=== PATIENT | male | born 1975 | race Caucasian/White ===

== ENCOUNTER 2019-09-23 06:29 | Observation (INO) | payer OTHER, MEDICAID, SELFPAY ==
[2019-09-23] VITALS (12 sets, daily range): BP systolic 132–176; BP diastolic 58–102; PULSE 57–77; RESP 16–17; TEMP 36.6–36.7; O2SAT 94–98; BMI 25.0
--- NOTE | 2019-09-23 06:39 | ED_ITS ---
HPI - Skin/Abscess/Foreign Bdy <Brianne Woods MD - Last Filed: 09/24/19 05:16> General Chief complaint: Skin/Abscess/Foreign Body Stated complaint: Lump on throat Time Seen by Provider: 09/23/19 06:32 History of Present Illness HPI narrative: 44-year-old gentleman with no significant medical history presents with an expanding abscess in the submandibular space that has been present for at least 3 days. Looks like it begin is the channing follicular abscess when he woke up this morning he noted that it had grown significantly was pushing backward extending down his neck to the sternal notch and large enough that he was concerned that it was difficult to swallow and he felt like he was having more trouble breathing. He denies fevers or chills. They did try poking out it to try to get it to drain with little success. There is a minor amount of drainage that is more serosanguineous than anything else. Related Data Home Medications Medication Instructions Recorded Confirmed No Known Home Medications 09/23/19 09/23/19 Allergies Allergy/AdvReac Type Severity Reaction Status Date / Time No Known Drug Allergies Allergy Verified 09/23/19 10:52 Review of Systems <Brianne Woods MD - Last Filed: 09/24/19 05:16> Review of Systems Narrative: Pertinent positive and negative findings as per HPI Remainder of review of systems is otherwise unremarkable for Constitutional: Fevers, chills, weakness ENT: No sore throat, ear pain CV: Chest pain, palpitations, dyspnea on exertion Respiratory: Cough, wheeze, dyspnea GI: Nausea, vomiting, diarrhea, change in bowel habits, black or bloody stools : Dysuria, hematuria, flank pain MS: Muscle weakness, numbness, joint swelling or warmth Neuro: Syncope, dizziness, tingling Patient History <Brianne Woods MD - Last Filed: 09/24/19 05:16> Medical History (Updated 09/23/19 @ 14:17 by Daina Sky MD) Inguinal hernia (Acute) Lower leg injury (Acute) Social History Smoking Status: Current every day smoker Exam <Brianne Woods MD - Last Filed: 09/24/19 05:16> Narrative Exam Narrative: General: Healthy appearing, in no acute distress. Able to give a complete and coherent history. Well-nourished well-developed HEENT: Moist mucous membranes, 6 x 8 cm abscess in the submandibular area without surrounding erythema that appears to be extending down the anterior portion of his neck toward the sternal notch. He complains of pressure over his Gustavo's apple and a sensation that it is getting harder to breathe. Neck: No cervical adenopathy, supple Respiratory: Lungs are clear to auscultation, no wheezing no rales no rhonchi. Full and symmetrical air movement and able to comfortably speak in full sentences Cardiac: Regular rate and rhythm no murmurs no bruits Skin: Warm and dry, no rashes Neurologic: Grossly neurologically intact with no obvious asymmetries or abnormalities Extremities: No trauma, well perfused Psych: Cooperative, appropriate insight and affect Initial Vital Signs Initial Vital Signs: Vital Signs Temperature 97.8 F 09/23/19 06:46 Pulse Rate 77 09/23/19 06:46 Respiratory Rate 16 09/23/19 06:46 Blood Pressure 167/102 H 09/23/19 06:46 Pulse Oximetry 97 09/23/19 06:46 <Jorge L Sheridan MD - Last Filed: 09/23/19 08:47> Initial Vital Signs Initial Vital Signs: Vital Signs Temperature 97.8 F 09/23/19 06:46 Pulse Rate 77 09/23/19 06:46 Respiratory Rate 16 09/23/19 06:46 Blood Pressure 167/102 H 09/23/19 06:46 Pulse Oximetry 97 09/23/19 06:46 Course <Brianne Woods MD - Last Filed: 09/24/19 05:16> Orders Ordered: Acetaminophen (Tylenol) 650 mg PO Q6HR PRN PRN Reason: Fever/Mild Pain (1-3) Hydrocodone Bitart/Acetaminophen ([place]ing 5/325) 1 tab PO Q4HR PRN PRN Reason: Pain, Moderate (4-6) Last Admin: 09/23/19 22:37 Dose: 1 tab Documented by: Admin: 09/23/19 18:02 Dose: 1 tab Documented by: Admin: 09/23/19 14:19 Dose: 1 tab Documented by: WAQAS Al Hydrox/Mg Hydrox/Simethicone (Maalox Plus) 30 ml PO Q6HR PRN PRN Reason: Dyspepsia Calcium Carbonate (Tums) 1,000 mg PO Q4HR PRN PRN Reason: Dyspepsia Enoxaparin Sodium (Lovenox) 40 mg SUBCUT DAILY [facility] Hydromorphone HCl (Dilaudid) 1 mg IV Q6HR PRN PRN Reason: Pain, Severe (7-10) Dextrose/Sodium Chloride (Dextrose 5%-0.45% Ns) 1,000 mls @ 100 mls/hr IV CONT [facility] Last Admin: 09/24/19 03:34 Dose: 100 mls/hr Documented by: Infusion: 09/24/19 03:32 Dose: 0 mls/hr Documented by: Admin: 09/23/19 14:21 Dose: 100 mls/hr Documented by: WAQAS Ceftriaxone Sodium/Dextrose (Rocephin) 2 gm in 50 mls @ 100 mls/hr IV Q24H [facility] Vancomycin HCl (Vancomycin) 1,000 mg in 200 mls @ 200 mls/hr IV Q8H [facility] Last Infusion: 09/24/19 00:00 Dose: 0 mls/hr Documented by: Admin: 09/23/19 21:35 Dose: 200 mls/hr Documented by: Infusion: 09/23/19 19:09 Dose: 0 mls/hr Documented by: Admin: 09/23/19 14:28 Dose: 200 mls/hr Documented by: WAQAS Ibuprofen (Advil) 600 mg PO Q6HR PRN PRN Reason: Fever/Mild Pain (1-3) Last Admin: 09/23/19 21:35 Dose: 600 mg Documented by: TAYLOR Naloxone HCl (Narcan) 0.2 mg IV Q2MIN PRN PRN Reason: Opiate Reversal Nicotine (Nicoderm) 14 mg TOP DAILY [facility] Last Admin: 09/23/19 15:33 Dose: 14 mg Documented by: TAYLOR Ondansetron HCl (Zofran) 4 mg IV Q8HR PRN PRN Reason: Nausea And Vomiting Vancomycin HCl (Vancomycin Trough) 1 request MISC NOW ONE Stop: 09/24/19 14:01 Discontinued Medications Ceftriaxone Sodium/Dextrose (Rocephin) 2 gm in 50 mls @ 100 mls/hr IV NOW ONE Stop: 09/23/19 07:08 Last Infusion: 09/23/19 08:46 Dose: 0 mls/hr Documented by: Admin: 09/23/19 07:56 Dose: 100 mls/hr Documented by: MARY Vancomycin HCl (Vancomycin) 1,000 mg in 200 mls @ 200 mls/hr IV Q24H [facility] Last Admin: 09/23/19 15:20 Dose: Not Given Documented by: TAYLOR Ketorolac Tromethamine (Toradol) 30 mg IV NOW ONE Stop: 09/23/19 08:30 Last Admin: 09/23/19 08:47 Dose: 30 mg Documented by: CHRISTINE Vital Signs Vital signs: Vital Signs - 8 hr 09/23/19 06:46 09/23/19 07:57 09/23/19 08:00 Temperature 97.8 F Pulse Rate 77 68 67 Respiratory Rate 16 Blood Pressure 167/102 H Pulse Oximetry 97 98 97 09/23/19 08:05 Temperature Pulse Rate Respiratory Rate Blood Pressure 168/95 H Pulse Oximetry <Jorge L Sheridan MD - Last Filed: 09/23/19 08:47> Course Course Narrative: The patient was initially evaluated by Dr. Ortiz. He developed a submandibular lump 3 days ago, he now significant erythema and swelling in that region, with erythema extending to the anterior chest. 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 He describes multiple inflamed hair cells in his face and chin, thinking that may be the source. There was no injury associated with the current inflammatory changes. He feels pressure when he swallows, no difficulty breathing. He is having no fever chills. Dr. Ortiz ordered the lab evaluation, as well as Rocephin IV. CT showed cellulitis changes, no clear abscess formation. He has had no associated fever chills. He has no cough or dyspnea. He has no chronic skin disease. He is not diabetic. Exam: Patient is alert and oriented, no apparent distress. No facial changes, no edema or erythema. Oropharynx is normal. There is no edema. Teeth are normal. Segments submandibular edema with erythema. Induration without fluctuance. There is a site with a small amount of purulent serous discharge. No nuchal rigidity. Lungs clear to auscultation Heart regular rate rhythm, no murmur. Skin: Cellulitis to the anterior neck, with erythema extending onto the upper c hest. There is no induration or fluctuance in the upper chest region Assessment: Neck cellulitis. Plan: The patient has received Rocephin. I ordered Toradol for pain. The situation has been discussed with the hospitalist, Dr. Sky. He was admitted for treatment the cellulitis, as well as airway monitoring. Orders Ordered: Acetaminophen (Tylenol) 650 mg PO Q6HR PRN PRN Reason: Fever/Mild Pain (1-3) Hydrocodone Bitart/Acetaminophen ([place]ing 5/325) 1 tab PO Q4HR PRN PRN Reason: Pain, Moderate (4-6) Last Admin: 09/23/19 22:37 Dose: 1 tab Documented by: Admin: 09/23/19 18:02 Dose: 1 tab Documented by: Admin: 09/23/19 14:19 Dose: 1 tab Documented by: WAQAS Al Hydrox/Mg Hydrox/Simethicone (Maalox Plus) 30 ml PO Q6HR PRN PRN Reason: Dyspepsia Calcium Carbonate (Tums) 1,000 mg PO Q4HR PRN PRN Reason: Dyspepsia Enoxaparin Sodium (Lovenox) 40 mg SUBCUT DAILY [facility] Hydromorphone HCl (Dilaudid) 1 mg IV Q6HR PRN PRN Reason: Pain, Severe (7-10) Dextrose/Sodium Chloride (Dextrose 5%-0.45% Ns) 1,000 mls @ 100 mls/hr IV CONT [facility] Last Admin: 09/24/19 03:34 Dose: 100 mls/hr Documented by: Infusion: 09/24/19 03:32 Dose: 0 mls/hr Documented by: Admin: 09/23/19 14:21 Dose: 100 mls/hr Documented by: WAQAS Ceftriaxone Sodium/Dextrose (Rocephin) 2 gm in 50 mls @ 100 mls/hr IV Q24H [facility] Vancomycin HCl (Vancomycin) 1,000 mg in 200 mls @ 200 mls/hr IV Q8H [facility] Last Infusion: 09/24/19 00:00 Dose: 0 mls/hr Documented by: Admin: 09/23/19 21:35 Dose: 200 mls/hr Documented by: Infusion: 09/23/19 19:09 Dose: 0 mls/hr Documented by: Admin: 09/23/19 14:28 Dose: 200 mls/hr Documented by: WAQAS Ibuprofen (Advil) 600 mg PO Q6HR PRN PRN Reason: Fever/Mild Pain (1-3) Last Admin: 09/23/19 21:35 Dose: 600 mg Documented by: TAYLOR Naloxone HCl (Narcan) 0.2 mg IV Q2MIN PRN PRN Reason: Opiate Reversal Nicotine (Nicoderm) 14 mg TOP DAILY [facility] Last Admin: 09/23/19 15:33 Dose: 14 mg Documented by: TAYLOR Ondansetron HCl (Zofran) 4 mg IV Q8HR PRN PRN Reason: Nausea And Vomiting Vancomycin HCl (Vancomycin Trough) 1 request MISC NOW ONE Stop: 09/24/19 14:01 Discontinued Medications Ceftriaxone Sodium/Dextrose (Rocephin) 2 gm in 50 mls @ 100 mls/hr IV NOW ONE Stop: 09/23/19 07:08 Last Infusion: 09/23/19 08:46 Dose: 0 mls/hr Documented by: Admin: 09/23/19 07:56 Dose: 100 mls/hr Documented by: MARY Vancomycin HCl (Vancomycin) 1,000 mg in 200 mls @ 200 mls/hr IV Q24H [facility] Last Admin: 09/23/19 15:20 Dose: Not Given Documented by: TAYLOR Ketorolac Tromethamine (Toradol) 30 mg IV NOW ONE Stop: 09/23/19 08:30 Last Admin: 09/23/19 08:47 Dose: 30 mg Documented by: CHRISTINE Vital Signs Vital signs: Vital Signs - 8 hr 09/23/19 06:46 09/23/19 07:57 09/23/19 08:00 Temperature 97.8 F Pulse Rate 77 68 67 Respiratory Rate 16 Blood Pressure 167/102 H Pulse Oximetry 97 98 97 09/23/19 08:05 Temperature Pulse Rate Respiratory Rate Blood Pressure 168/95 H Pulse Oximetry MDM - Skin/Abscess/Foreign Bdy <Brianne Woods MD - Last Filed: 09/24/19 05:16> Lab Data Result diagrams: 09/23/19 06:43 09/23/19 06:43 Labs: Lab Results 09/23/19 09/23/19 09/23/19 Range/Units 06:43 06:43 06:43 WBC 13.7 H (4.5-11.0) X10^3/uL RBC 5.18 (4.5-5.9) X10^6/uL Hgb 16.3 (13.5-17.5) g/dL Hct 47.2 (41-53) % MCV 91.1 (80-100) fL MCH 31.5 (26-34) PG MCHC 34.5 (30-36) % RDW 13.2 (11.6-14.8) % Plt Count 269 (150-400) X10^3/uL Neut % (Auto) 69.4 (50-75) % Lymph % (Auto) 17.9 L (25-40) % [place] % (Auto) 9.3 (3-14) % Eos % (Auto) 2.8 (2-4) % Baso % (Auto) 0.6 (0-2) % Neut # (Auto) 9500 H (6870-0403) /uL Lymph # (Auto) 2400 (9787-0166) /uL [place] # (Auto) 1300 H (0-900) /uL Eos # (Auto) 400 (0-450) /uL Baso # (Auto) 100 (0-100) /uL Sodium 137 (137-145) mmol/L Potassium 3.6 (3.4-5.1) mmol/L Chloride 101 (98-107) mmol/L Carbon Dioxide 27 (22-32) mmol/L BUN 12 (9-20) mg/dL Creatinine 0.87 (0.66-1.25) mg/dL Estimated GFR > 60.0 (>60) mL/min BUN/Creatinine Ratio 13.8 (6-22) Glucose 120 H (70-100) mg/dL Lactate 1.7 (0.7-2.1) mmol/L Calcium 9.4 (8.4-10.2) mg/dL Total Bilirubin 0.5 (0.2-1.3) mg/dL AST 23 (17-59) IU/L ALT 24 (<50) IU/L Alkaline Phosphatase 88 (38-126) U/L Total Protein 7.6 (6.3-8.2) g/dL Albumin 4.5 (3.5-5.0) g/dL Globulin 3.1 (1.7-4.1) g/dL Albumin/Globulin Ratio 1.5 (1.0-2.8) <Jorge L Sheridan MD - Last Filed: 09/23/19 08:47> Lab Data Labs: Lab Results 09/23/19 09/23/19 09/23/19 Range/Units 06:43 06:43 06:43 WBC 13.7 H (4.5-11.0) X10^3/uL RBC 5.18 (4.5-5.9) X10^6/uL Hgb 16.3 (13.5-17.5) g/dL Hct 47.2 (41-53) % MCV 91.1 (80-100) fL MCH 31.5 (26-34) PG MCHC 34.5 (30-36) % RDW 13.2 (11.6-14.8) % Plt Count 269 (150-400) X10^3/uL Neut % (Auto) 69.4 (50-75) % Lymph % (Auto) 17.9 L (25-40) % [place] % (Auto) 9.3 (3-14) % Eos % (Auto) 2.8 (2-4) % Baso % (Auto) 0.6 (0-2) % Neut # (Auto) 9500 H (1625-5824) /uL Lymph # (Auto) 2400 (3991-8460) /uL [place] # (Auto) 1300 H (0-900) /uL Eos # (Auto) 400 (0-450) /uL Baso # (Auto) 100 (0-100) /uL Sodium 137 (137-145) mmol/L Potassium 3.6 (3.4-5.1) mmol/L Chloride 101 (98-107) mmol/L Carbon Dioxide 27 (22-32) mmol/L BUN 12 (9-20) mg/dL Creatinine 0.87 (0.66-1.25) mg/dL Estimated GFR > 60.0 (>60) mL/min BUN/Creatinine Ratio 13.8 (6-22) Glucose 120 H (70-100) mg/dL Lactate 1.7 (0.7-2.1) mmol/L Calcium 9.4 (8.4-10.2) mg/dL Total Bilirubin 0.5 (0.2-1.3) mg/dL AST 23 (17-59) IU/L ALT 24 (<50) IU/L Alkaline Phosphatase 88 (38-126) U/L Total Protein 7.6 (6.3-8.2) g/dL Albumin 4.5 (3.5-5.0) g/dL Globulin 3.1 (1.7-4.1) g/dL Albumin/Globulin Ratio 1.5 (1.0-2.8) Imaging Data Soft tissue neck CT:: Radiologist's Impression: Submandibular cellulitis, no clear abscess formation. Airway is intact. <Jorge L Sheridan MD - Last Filed: 09/23/19 08:47> Critical Care Time Critical Care Time: Yes Total Critical Care Time: 45 Attestation: Critical care time included initial assessment patient, evaluation of lab in radiology information, initiation of care in the ER, informed the patient of the clinical findings and ventral consultation with the admitting hospitalist. Discharge Plan Departure Patient Disposition: Admitted as Observation Clinical Impression: Cellulitis of neck Discharge Date/Time: 09/23/19 11:08 Admit Date/Time: 09/23/19 09:17 Admit Provider: Daina Sky ED Sign-out <Brianne Woods MD - Last Filed: 09/24/19 05:16> Cosign ED Attending Cosisauraature Attestation: I was immediately available in the department for consultation throughout this patient's visit. I agree with documentation as above. Brianne Woods MD
[2019-09-23 06:54] LABS: Add Manual Diff / Slide Review NO; Basophils Absolute Auto 100 /uL (0-100); Basophils Percent Auto 0.6 % (0-2); Eosinophils Absolute Auto 400 /uL (0-450); Eosinophils Percent Auto 2.8 % (2-4); Hematocrit 47.2 % (41-53); Hemoglobin 16.3 g/dL (13.5-17.5); Lymphocytes Absolute Auto 2400 /uL (1100-4500); Lymphocytes Percent Auto 17.9 % (25-40); Mean Corpuscular HGB Conc 34.5 % (30-36); Mean Corpuscular Hemoglobin 31.5 PG (26-34); Mean Corpuscular Volume 91.1 fL (80-100); Monocytes Absolute Auto 1300 /uL (0-900); Monocytes Percent Auto 9.3 % (3-14); Neutrophils Absolute Auto 9500 /uL (1500-7000); Neutrophils Percent Auto 69.4 % (50-75); Platelet Count 269 X10^3/uL (150-400); Red Blood Cell Count 5.18 X10^6/uL (4.5-5.9); Red Cell Distribution Width 13.2 % (11.6-14.8); White Blood Cell Count 13.7 X10^3/uL (4.5-11.0)
[2019-09-23 07:03] LABS: Alanine Aminotransferase 24 IU/L (<50); Albumin 4.5 g/dL (3.5-5.0); Albumin Globulin Ratio 1.5 (1.0-2.8); Alkaline Phosphatase 88 U/L (38-126); Aspartate Aminotransferase 23 IU/L (17-59); BUN Creatinine Ratio 13.8 (6-22); Bilirubin Total 0.5 mg/dL (0.2-1.3); Blood Urea Nitrogen 12 mg/dL (9-20); Calcium 9.4 mg/dL (8.4-10.2); Carbon Dioxide 27 mmol/L (22-32); Chloride 101 mmol/L (98-107); Estimated Glomerular Filt Rate > 60.0 mL/min (>60); Globulin 3.1 g/dL (1.7-4.1); Glucose 120 mg/dL (70-100); HEMOLYSIS < 15 (0-50); Potassium 3.6 mmol/L (3.4-5.1); Sodium 137 mmol/L (137-145); Total Protein 7.6 g/dL (6.3-8.2)
[2019-09-23 07:12] LABS: Lactate (Lactic Acid) 1.7 mmol/L (0.7-2.1)
--- NOTE | 2019-09-23 07:51 | DI.CT.S_ITS ---
PROCEDURE: CT SOFT TISSUE NECK W CON INDICATIONS: submandibular abscess TECHNIQUE: After the administration of intravenous contrast, 3.0 mm axial sections acquired from the sella to the aortic arch. Additional oblique axial 3.0 mm sections acquired through the pharynx. 3 mm thick coronal and sagittal reformats were generated. For radiation dose reduction, the following was used: automated exposure control. COMPARISON: None. FINDINGS: Image quality: Excellent. Lymph nodes: No enlarged lymph nodes seen throughout the neck. Vessels: Visualized vasculature appears patent. Neck spaces: The oropharynx, nasopharynx, and pharynx demonstrate no mucosal lesions. The vocal cords, false vocal cords, pyriform sinuses, epiglottis, vallecula, and tongue base all appear normal. Extramucosal spaces appear unremarkable. Glands: The parotid and submandibular glands appear normal. Thyroid gland appears normal . Miscellaneous: Visualized brain and orbits appear normal. Lung apices appear clear. Superficial soft tissues appear normal. Bones and superficial soft tissues: No suspicious bony lesions. Visualized sinuses and mastoids appear unremarkable except for a small inferior right maxillary sinus mucous retention cyst. Note is made of edema within the soft tissues deep to the cutaneous surface of the submental region of the anterior midline neck. This is slightly greater on the right than the left and associated with focal thickening of the cutaneous margin centered on series 2, image 56. No abscess is seen in this area. There is a single mildly prominent lymph node adjacent to this area, centered on series 2, image 54 and measuring up to 11 x 8 mm in maximal transverse and AP dimensions. . IMPRESSION: The subcutaneous edema and cutaneous thickening discussed above is slightly greater on the right than the left and focally most prominent in the right submental area clinically reported. No abscess associated. The appearance is most likely a manifestation of focal cellulitis without abscess. A small but mildly prominent lymph node deep to this area centered just to the right of midline is likely reactive and measures only 8 x 11 mm. No sign of sinusitis or odontogenic infection, incidental note made of a small mucous retention cyst inferior right maxillary sinus. Dictated by: Srinivas Jenkins M.D. on 09/23/2019 at 8:13 Approved by: Srinivas Jenkins M.D. on 09/23/2019 at 8:19
[2019-09-23] MEDS: CEFTRIAXONE 2 GM/50 ML FROZ.PIGGY IV (07:56)
[2019-09-23] MEDS: KETOROLAC 60 MG/2 ML VIAL 30 MG IV (08:47)
--- NOTE | 2019-09-23 11:41 | PC.NURSE ---
Day shift admit note: Patient admitted to room 213 from ED, VSS and afebrile upon arrival. Oriented to room, environment, and plan care. Able to speak in full sentences, O2 sat 97% on RA. NO difficulty breathing noted. Call light within reach. Ambulating in room independently. Call light within reach.
[2019-09-23 12:24] LABS: COVID19 -Nasal RAPID Negative (Negative)
--- NOTE | 2019-09-23 14:14 | P.HP_ITS ---
History of Present Illness History of Present Illness Date Patient Seen: 09/23/19 Chief complaint: Lump on throat Narrative: The patient is a 44-year-old male with no prior past medical history who presented to the hospital with submandibular abscess/cellulitis. 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 He noted some swelling under the chin few days ago. He then noticed that he had more pain under the chin in but the sternocleidomastoid area. He reported some swelling today. He had difficulty swallowing. He tried to express pus from the area with little improvement. He presented to the emergency room for evaluation. In the emergency room the patient had a CT of the neck which showed soft tissue swelling but no formation of an abscess. He was admitted to the hospital at this time for cellulitis. Patient denies any shortness of breath or chest pain. He has had no fever that he is aware of but did take ibuprofen for generalized malaise last evening. He has had no nausea vomiting or diarrhea. He has had no dysuria hematuria or pyuria. No hematemesis melena or bright red blood per rectum. Patient was seen and evaluated in the emergency room. He had an elevated white count of 13.7. He was started on IV antibiotics and admitted to the hospital for further evaluation. Patient History Medical History (Updated 09/23/19 @ 14:17 by Daina Sky MD) Inguinal hernia (Acute) Lower leg injury (Acute) Family & Social History Social History: Prior Living Arrangements House Safety & Behavioral: Feels Safe in Current Yes Environment Been Physically Hurt or No Threatened By a Person Tobacco & Substance use: Smoking Status Current every day smoker alcohol intake frequency holiday/special occasion Substance Use Type marijuana Meds Home Medications and Allergies Home Medications Medication Instructions Recorded Confirmed Type No Known Home Medications 09/23/19 09/23/19 History Allergies Allergy/AdvReac Type Severity Reaction Status Date / Time No Known Drug Allergies Allergy Verified 09/23/19 10:52 Review of Systems Review of Systems ROS: Yes All systems reviewed with the patient and are negative except as otherwise documented Exam Vital Signs (past 8 hours): - 09/23/19 06:46 09/23/19 07:57 09/23/19 08:00 Temperature 97.8 F Pulse Rate 77 68 67 Respiratory Rate 16 Blood Pressure 167/102 H Pulse Oximetry 97 98 97 09/23/19 08:05 09/23/19 08:52 09/23/19 09:00 Temperature Pulse Rate 65 69 Respiratory Rate Blood Pressure 168/95 H 176/91 H Pulse Oximetry 97 95 09/23/19 09:01 09/23/19 09:20 09/23/19 09:30 Temperature Pulse Rate 63 Respiratory Rate 17 Blood Pressure 152/67 H 133/74 Pulse Oximetry 95 09/23/19 10:00 09/23/19 11:05 Temperature 97.9 F Pulse Rate 60 69 Respiratory Rate 16 Blood Pressure 132/75 142/80 H Pulse Oximetry 94 97 Oxygen Delivery Method Room Air Narrative Exam Narrative: Pleasant gentleman uncomfortable but in no obvious distress HEENT: Normocephalic, submandibular area swollen, there is an open punctate lesion with mild exudate. Attempted to express pus which was unsuccessful. He has erythema, warmth, tenderness to palpation. The area of inflammation under the submandibular area is about 7 x 8 cm in diameter. His oropharynx is clear. His neck is supple, no appreciable supraclavicular or infraclavicular adenopathy Lungs: Clear to auscultation Cardiac exam: Regular rate and rhythm normal S1-S2 with a 2/6 systolic ejection murmur Abdomen: Soft nontender nondistended Extremities: No edema Neuro exam: Nonfocal Objective Labs Result Diagrams: 09/23/19 06:43 09/23/19 06:43 Labs: Laboratory Results - last 24 hr 09/23/19 09/23/19 09/23/19 06:43 06:43 06:43 WBC 13.7 H RBC 5.18 Hgb 16.3 Hct 47.2 MCV 91.1 MCH 31.5 MCHC 34.5 RDW 13.2 Plt Count 269 Neut % (Auto) 69.4 Lymph % (Auto) 17.9 L [place] % (Auto) 9.3 Eos % (Auto) 2.8 Baso % (Auto) 0.6 Neut # (Auto) 9500 H Lymph # (Auto) 2400 [place] # (Auto) 1300 H Eos # (Auto) 400 Baso # (Auto) 100 Sodium 137 Potassium 3.6 Chloride 101 Carbon Dioxide 27 BUN 12 Creatinine 0.87 Estimated GFR > 60.0 BUN/Creatinine Ratio 13.8 Glucose 120 H Lactate 1.7 Calcium 9.4 Total Bilirubin 0.5 AST 23 ALT 24 Alkaline Phosphatase 88 Total Protein 7.6 Albumin 4.5 Globulin 3.1 Albumin/Globulin Ratio 1.5 COVID-19 PCR 09/23/19 10:50 WBC RBC Hgb Hct MCV MCH MCHC RDW Plt Count Neut % (Auto) Lymph % (Auto) [place] % (Auto) Eos % (Auto) Baso % (Auto) Neut # (Auto) Lymph # (Auto) [place] # (Auto) Eos # (Auto) Baso # (Auto) Sodium Potassium Chloride Carbon Dioxide BUN Creatinine Estimated GFR BUN/Creatinine Ratio Glucose Lactate Calcium Total Bilirubin AST ALT Alkaline Phosphatase Total Protein Albumin Globulin Albumin/Globulin Ratio COVID-19 PCR Negative Assessment & Plan Assessment & Plan narrative: Impression 1. 44-year-old male admitted to the hospital with submandibular cellulitis -patient likely may have had an ingrown here which became infected -despite CT findings which showed no evidence of abscess the area does look inflamed and as though it may form an abscess shortly -patient was given ceftriaxone in the emergency department. Will add IV vancomycin and for MRSA coverage. -cultures of the wound were obtained which are still pending -white count elevated at 13.7. Will recheck in the morning -recommend I&D if abscess formation occur - pain control 2. Nicotine dependence -patient was counseled to discontinue smoking -nicotine patch will be started 3. DVT prophylaxis Full code
[2019-09-23] MEDS: HYDROCODONE/ACET 5/325 TABLET 1 TAB PO ×3 (14:19→22:37)
[2019-09-23] MEDS: DEXTROSE 5%-0.45% NS 1,000 ML 100 ML IV (14:21)
[2019-09-23] MEDS: VANCOMYCIN 1,000 MG/200 ML PIGGYBACK 200 MG IV ×2 (14:28→21:35)
--- NOTE | 2019-09-23 14:48 | PC.NURSE ---
Day Shift- Report rec'd from ADEN Dee at 1440 on current pt status. At 1445, RN Coordinator Carlos in to see pt and this RN briefly, able to make needs known by pt. ADEN Gonzalez states pt's under chin, upper neck wound has an elevated area which was previously flat.
[2019-09-23] MEDS: NICOTINE 14 PATCH 14 MG TOP (15:33)
[2019-09-23] MEDS: IBUPROFEN 600 MG TABLET PO (21:35)
[2019-09-24] VITALS (7 sets, daily range): BP systolic 119–138; BP diastolic 69–90; PULSE 57–62; RESP 14–18; TEMP 36.3–36.8; O2SAT 97–98
[2019-09-24] MEDS: DEXTROSE 5%-0.45% NS 1,000 ML 100 ML IV (03:34)
[2019-09-24] MEDS: VANCOMYCIN 1,000 MG/200 ML PIGGYBACK 200 MG IV ×2 (05:55→15:05)
[2019-09-24] MEDS: HYDROCODONE/ACET 5/325 TABLET 1 TAB PO ×3 (05:58→20:47)
[2019-09-24 06:11] LABS: Add Manual Diff / Slide Review NO; Basophils Absolute Auto 0 /uL (0-100); Basophils Percent Auto 0.4 % (0-2); Eosinophils Absolute Auto 500 /uL (0-450); Eosinophils Percent Auto 5.7 % (2-4); Hematocrit 43.5 % (41-53); Hemoglobin 14.8 g/dL (13.5-17.5); Lymphocytes Absolute Auto 1800 /uL (1100-4500); Mean Corpuscular Hemoglobin 31.3 PG (26-34); Monocytes Absolute Auto 800 /uL (0-900); Monocytes Percent Auto 8.6 % (3-14); Neutrophils Absolute Auto 6400 /uL (1500-7000); Neutrophils Percent Auto 66.3 % (50-75); Platelet Count 234 X10^3/uL (150-400); Red Blood Cell Count 4.72 X10^6/uL (4.5-5.9); Red Cell Distribution Width 13.5 % (11.6-14.8); White Blood Cell Count 9.6 X10^3/uL (4.5-11.0)
[2019-09-24 06:19] LABS: BUN Creatinine Ratio 18.4 (6-22); Blood Urea Nitrogen 18 mg/dL (9-20); Calcium 8.5 mg/dL (8.4-10.2); Carbon Dioxide 30 mmol/L (22-32); Chloride 102 mmol/L (98-107); Estimated Glomerular Filt Rate > 60.0 mL/min (>60); Glucose 113 mg/dL (70-100); HEMOLYSIS < 15 (0-50); Sodium 137 mmol/L (137-145)
[2019-09-24] MEDS: ENOXAPARIN 40 MG/0.4 ML SYRINGE SUBCUT (08:42)
[2019-09-24] MEDS: CEFTRIAXONE 2 GM/50 ML FROZ.PIGGY IV (08:42)
[2019-09-24] MEDS: NICOTINE 14 PATCH 14 MG TOP ×2 (08:42→16:21)
--- NOTE | 2019-09-24 09:07 | PM.PN.1 ---
Subjective Subjective Date Patient Seen: 09/24/19 Interval history: Patient reports significant pain involving the submandibular area. He notes the swelling has improved today. There has been no exudate express. He has had no fever. He feels somewhat improved today. Exam Vital Signs (past 8 hours): - 09/24/19 07:22 09/24/19 08:33 Temperature 97.6 F Pulse Rate 62 57 L Respiratory Rate 18 14 Blood Pressure 119/76 Pulse Oximetry 97 97 Oxygen Delivery Method Room Air Oxygen Flow Rate 0 Narrative Exam Narrative: Pleasant gentleman in no obvious distress Submandibular area with decreased swelling, decreased erythema, utility tender carding to palpation. There is a 6 x 7 cm indurated area. There is no fluctuance. No pus has been exposed Lungs clear to auscultation Cardiac exam: Regular rate and rhythm normal S1-S2 Abdomen soft nontender nondistended Extremity no edema Objective Labs Result Diagrams: 09/24/19 05:45 09/24/19 05:45 Labs: Laboratory Results - last 24 hr 09/23/19 09/24/19 09/24/19 10:50 05:45 05:45 WBC 9.6 RBC 4.72 Hgb 14.8 Hct 43.5 MCV 92.0 MCH 31.3 MCHC 34.0 RDW 13.5 Plt Count 234 Neut % (Auto) 66.3 Lymph % (Auto) 19.0 L [place] % (Auto) 8.6 Eos % (Auto) 5.7 H Baso % (Auto) 0.4 Neut # (Auto) 6400 Lymph # (Auto) 1800 [place] # (Auto) 800 Eos # (Auto) 500 H Baso # (Auto) 0 Sodium 137 Potassium 4.0 Chloride 102 Carbon Dioxide 30 BUN 18 Creatinine 0.98 Estimated GFR > 60.0 BUN/Creatinine Ratio 18.4 Glucose 113 H Calcium 8.5 COVID-19 PCR Negative Assessment & Plan Assessment & Plan narrative: 1. Submandibular cellulitis -no evidence of abscess formation -no indication for I&D at this time -will continue IV antibiotic -will continue warm compresses -should an area of fluctuance develop would consider I&D -pain control as read 2. Nicotine dependence -continue Nicoderm to patch 3. Anticipate discharge home in 1-2 days
[2019-09-24 10:03] LABS: Procalcitonin < 0.05 ng/mL (<0.5)
[2019-09-24] MEDS: IBUPROFEN 600 MG TABLET PO (13:42)
--- NOTE | 2019-09-24 14:40 | CM.DANOTE ---
Discharge Planning/Care Management DCP: assessment: case received, EMR reviewed and met with pt during Team Bedside Rounds. Introduced self and role. Pt is a 44 year old male who admitted yesterday morning to care of hospitalist team. Admission status: OBS: confirmed by UR RN Zaid. Payer: [employer] PCP: pt confirms he is current with [facility]. His PCP there just retired and the clinic is assigning him someone else. Pt is employed by [employer], working outside in a face mask. He is functionally independent at baseline and has been up independently in the room. Pt is currently being treated for a sub mandibular infection and on IV antibiotics for same. If the infected area worsens Dr. Sky stated to pt that a consult and I&D would be considered. P: DCP team to follow prn as POC unfolds and assist with any d/c needs that may arise. If pt continues to improve anticipate he will d/c to home setting. CM Discharge Assessment Start: 09/24/19 14:39 Freq: Status: Active Protocol: Document 09/24/19 14:39 ITV (Rec: 09/24/19 14:40 ITV [id number]) Discharge Planning Assessment Advance Directives? No History Provided By Patient,Medical Record Has Patient been admitted in last 30 No days? Prior Living Arrangements House Independent with ADL's Yes Is patient alert and oriented? Yes Review Status In Process
[2019-09-24 15:27] LABS: Vancomycin Trough 7.2 ug/mL (10-20)
[2019-09-24] MEDS: VANCOMYCIN 1,250 MG in SODIUM CHLORIDE 0.9% 250 ML IV (20:48)
[2019-09-25] MEDS: VANCOMYCIN 1,250 MG in SODIUM CHLORIDE 0.9% 250 ML IV (03:32)
[2019-09-25] MEDS: VANCOMYCIN 1.25 MG in SODIUM CHLORIDE 0.9% 250 ML 167 ML IV (03:34)
[2019-09-25] MEDS: HYDROCODONE/ACET 5/325 TABLET 1 TAB PO ×2 (04:48→09:12)
[2019-09-25 08:36] VITALS: BP 122/64; PULSE 53; RESP 15; TEMP 36.2; O2SAT 98
[2019-09-25] MEDS: CEFTRIAXONE 2 GM/50 ML FROZ.PIGGY IV (08:59)
[2019-09-25] MEDS: LACTOBACILLUS ACIDOPHILUS TABLET 1 EACH PO (09:01)
--- NOTE | 2019-09-25 09:30 | PM.DS.1 ---
History of Present Illness History of Present Illness Chief complaint: Lump on throat Discharge Providers Provider Date of admission: 09/23/19 09:17 Discharge Date: 09/25/19 Discharge provider: Arianna Alonzo DO Summary Hospital Course Discharge Diagnosis: 1. Acute submandibular cellulitis, present on admission. Resolving. 2. Nicotine dependence, chronic, present on admission. Stable. Hospital Course: Ferny Tracy 44-year-old male with no prior past medical history who presented to the ED with neck pain and swelling. 1. Acute submandibular cellulitis, present on admission. Resolving. -Patient presented with 3 days of progressive neck swelling and pain. -CT soft tissue neck with contrast demonstrated?subcutaneous edema and cutaneous thickening slightly?greater on the right than the left and focally most prominent in the right submental area without associated?abscess with avsmall but mildly prominent lymphnode deep to this area centered just to the right of midline is likely reactive and measures only 8 x 11 mm.?No sign of sinusitis or odontogenic infection. -No indication for I&D at this time but should an area of fluctuance develop instructed the patient to be seen for possible I&D. -Continued ceftriaxone 2 g IV daily and vancomycin with dosing per pharmacist pending wound cultures which grew strep pyogenes. Patient discharged on Keflex 500 mg twice daily for 7 days. -Continued conservative management with warm compresses. -Continued pain control acetaminophen 650 mg every 6 hours as needed for mild pain, ibuprofen 600 mg every 6 hours as needed for mild pain and hydrocodone acetaminophen 5-325 mg every 4 hours as needed for moderate to severe pain. 2. Nicotine dependence, chronic, present on admission. Stable. -Continue Nicoderm to patch daily. -Counseled the patient regarding?smoking cessation. Exam Vital Signs (past 8 hours): - 09/25/19 08:36 Temperature 97.2 F L Pulse Rate 53 L Respiratory Rate 15 Blood Pressure 122/64 Pulse Oximetry 98 Oxygen Delivery Method Room Air Oxygen Flow Rate 0 Narrative Exam Narrative: General: Middle-aged gentleman sitting in bed and in no acute distress, well-developed, well-nourished, appropriately interactive HEENT: Normocephalic, atraumatic. External ears without defect. Pupils equal, round, and reactive to light. Anicteric sclerae, moist conjunctivae, and no lid lag. Oropharynx free of erythema and cobble stoning with moist mucosa. Neck: Supple with full range of motion. No lymphadenopathy or thyromegaly. Submandibular cellulitis with induration but no fluctuance. Cardiovascular: Regular rate and rhythm without murmurs, rubs, or gallops appreciated Pulmonary: Clear to auscultation bilaterally without crackles, wheezes, or rhonchi. Normal respiratory effort with no use of accessory muscles. Abdomen: Soft, bowel sounds present, nontender, nondistended. No hepatosplenomegaly or masses appreciated. Extremities: No clubbing, cyanosis, or edema. Skin: Normal temperature, turgor, and texture; no rash, ulcers, or subcutaneous nodules appreciated. Neurological: Cranial nerves grossly intact. Psychiatric: Normal mood and affect. Alert and oriented to person, place, and time. Objective Labs Result Diagrams: 09/24/19 05:45 09/24/19 05:45 Labs: Laboratory Results - last 24 hr 09/24/19 09/24/19 05:45 14:45 Procalcitonin < 0.05 Vancomycin Trough 7.2 L Discharge Plan Discharge Plan Patient Disposition: Home Discharge comment: You are being discharged home. You have a skin infection of your neck called cellulitis without evidence of abscess. Please continue warm compresses and if an area of purulence develops you may apply soft pressure to the sides to see if this auto extracts and if not please be seen by a medical professional for possible drainage. You have been prescribed Keflex 500 mg twice daily for 7 days to complete treatment. You have been prescribed hydrocodone 5-325 mg every 8 hours for severe pain. You may take alternating Tylenol and ibuprofen as directed on the bottle for mild pain. Please follow-up with your primary care provider in the next 1 week regarding your hospitalization. If your neck infection worsens, you have increased difficulty swallowing, developed fever chills please be seen immediately by a medical professional. Discharge orders & Medications Prescriptions: New cephalexin [Keflex] 500 mg capsule 500 mg PO BID Qty: 14 RF: 0 hydrocodone-acetaminophen 5-325 mg tablet 1 tab PO Q8H PRN (Reason: pain) Qty: 5 RF: 0 Diet/Activity/Treatments Diet: Regular Activity: Activity as tolerated Visit Report/Discharge Packet Instructions: DI for Cellulitis -- Adult Visit Report Forms: Patient Portal/API, Stroke Signs & Symptoms Discharge Data Attending Provider: Daina Sky Admit Date/Time: 09/23/19 09:17
--- NOTE | 2019-09-25 12:26 | PC.NURSE ---
Addendum entered by Jen Pyle R.N. 09/25/19 15:39: HOSPITAL ADMISSIONS OFFICER assisted pt to friend's car for DC. Addendum entered by Jen Pyle R.N. 09/25/19 15:31: Note provided to pt for work. all packed up and waiting rife. DC instructions provided to pt. No questions remain. Original Note: AM shift. pt OA and receptive to care. IND in room, and voiding. BM this am. PIV infusing intermittent IV ABX and infusing well. Moderate pain report /10. Neck wound open to air and swollen. Heat packs intermittently and IND. pt showered and awaiting ride for DC. All personal items packed other than blanket pt is currently utilizing in bed.
--- NOTE | 2019-09-25 15:33 | CM.DPC ---
DCP Cont: Patient is going to be discharged home today. Went ahead and typed up a note indicating that he was here from Monday until today, and had Dr. Alonzo write on the note that he can return to work on Monday. Gave note to patient. P: Patient is to be discharged home today. Trudy Kinney RN/Angle Shearer
== END 2019-09-25 15:30 | disposition home or self-care (01) ==
LOC: ED 08:30 → AC 09:18
PROVIDERS: Emergency Medicine; Admitting Provider Internal Medicine; Emergency Provider Emergency Medicine; Visit Provider Internal Medicine
DX: L02.11 Cutaneous abscess of neck (principal); F17.210 Nicotine dependence, cigarettes, uncomplicated; Z11.59 Encounter for screening for other viral diseases
CPT/HCPCS: 36415; 70491; 80048; 80053; 80202; 83605; 84145; 85025; 87040; 87070; 87077; 87147; 87205; 87635; 94760; 94762; 96361; 96365; 96366; 96367; 96375; 99285; 99291; G0378; J0696; J1650; J1885; Q9967

== ENCOUNTER 2021-07-06 13:20 | Emergency (ER) | payer OTHER, MEDICAID, SELFPAY ==
[2019-09-23 11:09] VITALS: BMI 25.0
[2021-07-06] VITALS (8 sets, daily range): BP systolic 127–157; BP diastolic 67–90; PULSE 54–67; RESP 15; TEMP 36.4; O2SAT 95–98; BMI 29.8
--- NOTE | 2021-07-06 15:01 | DI.CT.S_ITS ---
PROCEDURE: CT ABDOMEN PELVIS WO CON INDICATIONS: ingunial hernia - right TECHNIQUE: Noncontrast 5 mm thick sections acquired from the diaphragms to the symphysis. 5 mm coronal and sagittal reformats were then performed. For radiation dose reduction, the following was used: automated exposure control, adjustment of mA and/or kV according to patient size. COMPARISON: None. FINDINGS: Image quality: Excellent. ABDOMEN: Lung bases: Lung bases are clear. Heart size is normal. Solid organs: Liver is normal in size. Gallbladder is unremarkable . Pancreas is normal in contours. Spleen is normal in size. No adrenal nodules. Kidneys are normal in size, without hydronephrosis or nephrolithiasis. Peritoneum and bowel: Unenhanced bowel loops demonstrate normal wall thickness and caliber. The appendix is thin walled and gas filled. There are extensive sigmoid colon diverticular outpouchings. Circumferential wall thickening is present within the mid sigmoid colon. There is mild pericolonic fat stranding without free fluid or pneumoperitoneum. Nodes and vessels: No retroperitoneal or mesenteric adenopathy by size criteria. Aorta and inferior vena cava are normal in caliber. Miscellaneous: No ventral hernias. PELVIS: Genitourinary: Bladder wall thickness is normal. Miscellaneous: No inguinal adenopathy. There is a small right fat containing inguinal hernia. No herniation of bowel visualized. Bones: No suspicious bony lesions. Degenerative changes are present at L2-3. No vertebral body compression fractures. IMPRESSION: 1. Small right fat containing inguinal hernia. No findings to suggest herniation of bowel or strangulation. 2. Extensive sigmoid colon diverticulosis. There is circumferential wall thickening of the mid sigmoid colon and some pericolonic fat stranding raising the suspicion for acute non perforated diverticulitis. However, the circumferential wall thickening of the colon also raises the suspicion for underlying colonic neoplasm. Colonoscopy is recommended when clinically possible to further characterize this finding and exclude colon cancer. 3. No other acute intra-abdominal findings. Normal appendix. Dictated by: Pam Huang M.D. on 07/06/2021 at 15:57 Approved by: Pam Huang M.D. on 07/06/2021 at 16:02
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
[2021-07-06 15:38] LABS: Add Manual Diff / Slide Review NO; Basophils Absolute Auto 0 /uL (0-100); Basophils Percent Auto 0.5 % (0-2); Eosinophils Absolute Auto 200 /uL (0-450); Eosinophils Percent Auto 2.2 % (2-4); Hematocrit 45.7 % (41-53); Hemoglobin 15.9 g/dL (13.5-17.5); Lymphocytes Absolute Auto 1800 /uL (1100-4500); Mean Corpuscular HGB Conc 34.8 % (30-36); Mean Corpuscular Hemoglobin 31.6 PG (26-34); Mean Corpuscular Volume 90.8 fL (80-100); Monocytes Absolute Auto 800 /uL (0-900); Monocytes Percent Auto 7.5 % (3-14); Neutrophils Absolute Auto 7300 /uL (1500-7000); Neutrophils Percent Auto 71.8 % (50-75); Platelet Count 263 X10^3/uL (150-400); Red Blood Cell Count 5.03 X10^6/uL (4.5-5.9); Red Cell Distribution Width 13.1 % (11.6-14.8); White Blood Cell Count 10.2 X10^3/uL (4.5-11.0)
[2021-07-06 15:54] LABS: Alanine Aminotransferase 27 IU/L (<50); Albumin 4.2 g/dL (3.5-5.0); Albumin Globulin Ratio 1.4 (1.0-2.8); Alkaline Phosphatase 64 U/L (38-126); Aspartate Aminotransferase 34 IU/L (17-59); BUN Creatinine Ratio 15.1 (6-22); Bilirubin Total 0.4 mg/dL (0.2-1.3); Blood Urea Nitrogen 11 mg/dL (9-20); Calcium 8.6 mg/dL (8.4-10.2); Carbon Dioxide 28 mmol/L (22-32); Chloride 107 mmol/L (98-107); Estimated Glomerular Filt Rate > 60 mL/min (>60); Glucose 85 mg/dL (70-100); HEMOLYSIS 18 (0-50); Potassium 4.3 mmol/L (3.4-5.1); Sodium 144 mmol/L (137-145); Total Protein 7.2 g/dL (6.3-8.2)
--- NOTE | 2021-07-06 16:19 | DI.RAD.S_ITS ---
PROCEDURE: XR WRIST LT MIN 3V INDICATIONS: pain TECHNIQUE: 4 views of the wrist were acquired. COMPARISON: None. FINDINGS: Bones: No fractures or dislocations. No suspicious bony lesions. Scaphoid view: No visualized fracture. Soft tissues: No suspicious soft tissue calcifications. IMPRESSION: No visualized acute fracture or dislocation. However, if clinical concern and/or pain persist, short interval imaging followup in 7-10 days is recommended, as occult injury cannot be definitively excluded. Dictated by: Celia Hooks M.D. on 07/06/2021 at 15:50 Approved by: Celia Hooks M.D. on 07/06/2021 at 15:51
== END 2021-07-06 17:50 | disposition home or self-care (01) ==
PROVIDERS: Emergency Provider Physician Assistant
DX: K40.90 Unilateral inguinal hernia, without obstruction or gangrene, not specified as recurrent (principal); M25.532 Pain in left wrist
CPT/HCPCS: 36415; 73100; 74176; 80053; 85025; 99284